=== PATIENT | female | born 1960 | race Hispanic/Latino ===

== ENCOUNTER 2018-01-30 13:02 | Emergency (ER) | payer OTHER ==
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
[2018-01-30 13:15] VITALS: RESP 18
[2018-01-30 13:29] VITALS: BMI 24.9
--- NOTE | 2018-01-30 14:48 | CT ---
PROCEDURE: CT MAXILLOFACIAL BONES WITHOUT CONTRAST HISTORY: nasal trauma COMPARISON: None TECHNIQUE: Contiguous axial CT images of the maxillofacial bones were obtained. Coronal and sagittal reformats were generated. Radiation dose: Total exam DLP = 697.39 mGy-cm. This CT exam was performed using one or more of the following dose reduction techniques: Automated exposure control, adjustment of the mA and/or kV according to patient size, and/or use of iterative reconstruction technique. FINDINGS: NASAL BONES: Unremarkable. ORBITS: Unremarkable. PARANASAL SINUSES/ MASTOIDS: Extensive right maxillary mucoperiosteal thickening consistent chronic sinusitis. The remaining paranasal sinuses are unremarkable. MAXILLA: Unremarkable. MANDIBLE/ TEMPOROMANDIBULAR JOINTS: Unremarkable. SKULL BASE: Unremarkable. TEMPORAL BONES: Middle ears and mastoid grossly unremarkable. OTHER FINDINGS: None. IMPRESSION: No evidence of nasal fracture. Chronic right maxillary sinusitis. Otherwise unremarkable.
[2018-01-30 15:12] VITALS: BP 157/87; O2SAT 98
[2018-01-30 17:20] VITALS: PULSE 78; TEMP 98
== END 2018-01-30 15:10 | disposition home or self-care (01) ==
LOC: ED 13:02
DX: S09.93XA Unspecified injury of face, initial encounter (principal); V03.90XA Pedestrian on foot injured in collision with car, pick-up truck or van, unspecified whether traffic or nontraffic accident, initial encounter